=== PATIENT | female | born 1985 | race Caucasian/White ===

== ENCOUNTER 2020-02-05 12:38 | Emergency (ER) | payer BC, MEDICAID ==
[~2020-02-05] VITALS: Ht 165.1 cm; Wt 73.0 kg
[~2020-02-05 12:38] MED LIST: NO HOME MEDS
[2020-02-05 12:45] VITALS: BP 138/71
== END 2020-02-05 13:53 | disposition home or self-care (01) ==
LOC: ER 12:39
DX: S61.203A Unspecified open wound of left middle finger without damage to nail, initial encounter (principal); F17.200 Nicotine dependence, unspecified, uncomplicated; X58.XXXA Exposure to other specified factors, initial encounter; Y93.89 Activity, other specified; Y92.89 Other specified places as the place of occurrence of the external cause; Y99.8 Other external cause status
CPT/HCPCS: 99281

== ENCOUNTER 2020-02-06 13:07 | Outpatient (CLI) | payer BC | END 2020-02-06 13:55 | disposition home or self-care (01) | LOC: WOUND CARE 13:07 | PROVIDERS: ATTEND Nurse Practitioner | DX: S67.193A Crushing injury of left middle finger, initial encounter (principal); S61.303A Unspecified open wound of left middle finger with damage to nail, initial encounter; L98.491 Non-pressure chronic ulcer of skin of other sites limited to breakdown of skin; F32.89 Other specified depressive episodes; F17.200 Nicotine dependence, unspecified, uncomplicated; X58.XXXA Exposure to other specified factors, initial encounter; Y93.89 Activity, other specified; Y92.89 Other specified places as the place of occurrence of the external cause; Y99.8 Other external cause status | CPT/HCPCS: G0463 ==

== ENCOUNTER 2020-02-14 10:40 | Outpatient (CLI) | payer BC ==
[2020-02-14] MEDS ORDERED: LIDOcaine 2% 5ml jelly ONE (11:03)
== END 2020-02-14 12:06 | disposition home or self-care (01) ==
LOC: WOUND CARE 10:40 → EDSTATUS 10:40 → WOUND CARE 12:06
PROVIDERS: ATTEND Nurse Practitioner
DX: S67.193D Crushing injury of left middle finger, subsequent encounter (principal); S61.303D Unspecified open wound of left middle finger with damage to nail, subsequent encounter; L98.491 Non-pressure chronic ulcer of skin of other sites limited to breakdown of skin; F32.89 Other specified depressive episodes; F17.200 Nicotine dependence, unspecified, uncomplicated; X58.XXXD Exposure to other specified factors, subsequent encounter
CPT/HCPCS: G0463